=== PATIENT | male | born 1945 | race Caucasian/White ===

== ENCOUNTER 2024-12-03 10:44 | Emergency (ER) | payer BC, MEDICARE | END 2024-12-03 15:30 | disposition home or self-care (01) | LOC: JP.ED 10:44 | DX: S82.001A Unspecified fracture of right patella, initial encounter for closed fracture (principal); I10 Essential (primary) hypertension; Z79.899 Other long term (current) drug therapy; Z86.16 Personal history of COVID-19; W01.198A Fall on same level from slipping, tripping and stumbling with subsequent striking against other object, initial encounter | CPT/HCPCS: 73562-26-RT; 73562-RT; 99283 ==